=== PATIENT | female | born 1985 | race Caucasian/White ===

== ENCOUNTER → 2021-01-11 | Outpatient (CLI) | payer OTHER ==
--- NOTE | 2021-01-11 20:36 | REPVR ---
PROCEDURE INFORMATION: Exam: MR Right Upper Extremity Other Than Joint Without Contrast; Hand Exam date and time: 01/11/2021 2:35 PM Age: 35 years old Clinical indication: Pain; Additional info: Pain RT hand TECHNIQUE: Imaging protocol: MR of the Right upper extremity without contrast. Exam focused on the hand. COMPARISON: No relevant prior studies available. FINDINGS: Bones and cartilage: The bone marrow signal throughout the hand is within normal limits. No fracture or osteonecrosis. Joint spaces: The metacarpophalangeal and interphalangeal joints are unremarkable. The distal radioulnar , radiocarpal and midcarpal joint spaces are well maintained. The basal joint is unremarkable. Collateral ligaments of digits: Unremarkable. No evidence of tear. Triangular fibrocartilage complex: The scapholunate ligament, lunotriquetral ligament and triangular fibrocartilage appear intact. If there is a continued clinical concern for TFCC or intercarpal ligament perforation then consider evaluation with wrist arthrography. Flexor compartment tendons: Flexor pollicis and 3rd, 4th and 5th flexor digitorum minimal tenosynovitis. There is mild distention of the flexor retinaculum and mild separation of the flexor tendons within the carpal tunnel with mild tenosynovial increased signal which may be seen with carpal tunnel syndrome. There is mild increased signal of the median nerve. Correlate clinically with signs and symptoms of median neuritis. Extensor compartment tendons: Unremarkable. No evidence of tear. Muscles: Unremarkable. Soft tissues: There is mild edema signal within the soft tissues of the dorsal surface of the wrist which may be seen with a dorsal wrist sprain. Correlate clinically. IMPRESSION: 1. Findin findings which may be seen with carpal tunnel syndrome. There is mild increased signal of the median nerve. Correlate clinically with signs and symptoms of median neuritis. 2. Minimal flexor pollicis and 3rd, 4th and 5th flexor digitorum tenosynovitis. 3. The scapholunate ligament, lunotriquetral ligament and triangular fibrocartilage appear intact. If there is a continued clinical concern for TFCC or intercarpal ligament perforation then consider evaluation with wrist arthrography. 4. There is mild edema signal within the soft tissues of the dorsal surface of the wrist which may be seen with a dorsal wrist sprain. Correlate clinically. Electronically signed by: New Farris On 01/11/2021 20:36:43 PM
== END ==
LOC: M RAD 13:29
PROVIDERS: ATTEND Physician Assistant Surgical
DX: M79.641 Pain in right hand (principal)